=== PATIENT | female | born 1955 | race Caucasian/White ===

== ENCOUNTER → 2016-12-16 | Outpatient (CLI) | payer OTHER ==
[~2016-12-16] MED LIST: DRV100 PO; SUMA50TA15 PO; TAMO20TA47 PO
--- NOTE | 2016-12-16 16:37 | MAMMOGRAPHY REPORT ---
UNILATERAL LEFT DIGITAL SCREENING MAMMOGRAM TOMOSYNTHESIS WITH CAD: 12/16/2016 CLINICAL HISTORY: Routine screening examination. Personal history of right breast cancer status pos t mastectomy. TECHNIQUE: Left breast tomosynthesis in addition to standard 2D mammography was performed. Current tavo melton was also evaluated with a Computer Aided Detection (CAD) system. COMPARISON: Comparison is made to exams dated: 12/06/2015 mammogram, 11/14/2014 mammogram, 11/09/2013 m ammogram, 09/16/2012 mammogram, 06/05/2011 mammogram, and 09/19/2010 ultrasound - [facility]. BREAST COMPOSITION: There are scattered areas of fibroglandular density in the left breast. FINDINGS: The parenchymal pattern is similar to prior mammograms. There are scattered stable benig n rim calcifications throughout the left breast. No developing mass, architectural distortion or cl uster of suspicious microcalcifications is seen. IMPRESSION: ACR BI-RADS CATEGORY 2: BENIGN There is no mammographic evidence of malignancy. A 1 year screening mammogram is recommended. The p atient will receive written notification of the results. Approximately 10% of breast cancers are not detected with mammography. A negative mammographic repor t should not delay biopsy if a clinically suggestive mass is present. Eleni Tenorio M.D. ay/:12/16/2016 14:02:51 Chief Administrative Officer: Kellen PETERSON(R)(M), [facility] letter sent: Normal 1/2 BI-RADS Code: ACR BI-RADS Category 2: Benign
== END | disposition home or self-care (01) ==
LOC: C.MAMM 11:59
PROVIDERS: ATTEND Internal Medicine
DX: Z12.31 Encounter for screening mammogram for malignant neoplasm of breast (principal); Z85.3 Personal history of malignant neoplasm of breast

== ENCOUNTER → 2017-01-10 | Outpatient (CLI) | payer OTHER ==
[~2017-01-10] MED LIST changes: -TAMO20TA47 PO; +TAMO20TA9 PO
== END | disposition home or self-care (01) ==
LOC: C.LABSPEC 16:21
PROVIDERS: ATTEND Internal Medicine
DX: R39.9 Unspecified symptoms and signs involving the genitourinary system (principal)

== ENCOUNTER → 2017-10-31 | Outpatient (CLI) | payer OTHER ==
--- NOTE | 2017-10-31 09:31 | DIAGNOSTIC IMAGING REPORT ---
ABDOMINAL ULTRASOUND, RIGHT UPPER QUADRANT HISTORY: Right upper quadrant abdominal pain.. COMPARISON: None. FINDINGS: Pancreas: The pancreatic tail is obscured by overlying bowel gas. The remaining portions of the pancreas are within normal limits. Liver: The liver is echogenic consistent with fatty change. Gallbladder: No gallbladder wall thickening. There is a 1.8 cm stone. CBD: 5 mm. Right kidney: No hydronephrosis. IMPRESSION: 1. Cholelithiasis. No gallbladder wall thickening. 2. Hepatic steatosis. Electronically signed by: Miguel Ángel Leger M.D. 10/31/2017 9:30 AM Dictated Date/Time: 10/31/2017 9:29 AM
[2017-10-31 11:17] LABS: BASO % 0.2 %; BASO ABS # 0.02 K/uL (0-0.2); EOS ABS # 0.09 K/uL (0-0.5); HEMATOCRIT 41.4 % (37-47); HEMOGLOBIN 14.8 g/dL (12.0-16.0); IG# 0.02 K/uL (0.00-0.02); LYMPH % 17.6 %; LYMPH ABS # 1.66 K/uL (1.2-3.4); MEAN CELL VOLUME 89.6 fL (80-100); MEAN CORPUSCULAR HGB CONC 35.7 g/dl (32-36); MEAN PLATELET VOLUME 10.1 fL (7.4-10.4); MONO ABS # 0.47 K/uL (0.11-0.59); NEUT ABS # 7.17 K/uL (1.4-6.5); PLATELET COUNT 241 K/uL (130-400); RED CELL DISTRIBUTION WIDTH SD 42.4 fL (36.4-46.3); WHITE BLOOD COUNT 9.43 K/uL (4.8-10.8)
[2017-10-31 11:34] LABS: ALBUMIN 3.7 gm/dl (3.4-5.0); ALT/SGPT 29 U/L (12-78); AST/SGOT 19 U/L (15-37); BLOOD UREA NITROGEN 11 mg/dl (7-18); CALCIUM 8.3 mg/dl (8.5-10.1); CARBON DIOXIDE 27 mmol/L (21-32); CREATININE 0.69 mg/dl (0.60-1.20); GLUCOSE 120 mg/dl (70-99); POTASSIUM 3.9 mmol/L (3.5-5.1); SODIUM 137 mmol/L (136-145)
[2017-10-31 11:45] LABS: ALKALINE PHOSPHATASE 74 U/L (45-117); CHOLESTEROL 216 mg/dl (0-200); LDL CHOLESTEROL CALCULATED 138 mg/dl; TOTAL PROTEIN 7.5 gm/dl (6.4-8.2)
== END | disposition home or self-care (01) ==
LOC: C.ULTRBC 08:21
PROVIDERS: ATTEND Internal Medicine
DX: R10.11 Right upper quadrant pain (principal); K80.20 Calculus of gallbladder without cholecystitis without obstruction; K76.0 Fatty (change of) liver, not elsewhere classified

== ENCOUNTER → 2018-01-19 | Outpatient (CLI) | payer OTHER ==
--- NOTE | 2018-01-20 07:39 | MAMMOGRAPHY REPORT ---
UNILATERAL LEFT DIGITAL SCREENING MAMMOGRAM TOMOSYNTHESIS WITH CAD: 01/19/2018 CLINICAL HISTORY: Asymptomatic. Personal history of breast cancer. TECHNIQUE: Left breast tomosynthesis in addition to standard 2D mammography was performed. Current st udy was also evaluated with a Computer Aided Detection (CAD) system. COMPARISON: Comparison is made to exams dated: 12/16/2016 mammogram, 12/06/2015 mammogram, 11/14/2014 ma mmogram, 11/09/2013 mammogram, 09/16/2012 mammogram, and 06/05/2011 mammogram - [facility]ter. BREAST COMPOSITION: There are scattered areas of fibroglandular density in the left breast. FINDINGS: There are scattered stable benign rim calcifications in the left breast. The glandular pat tern is similar to prior mammograms. No new suspicious mass, architectural distortion or cluster of microcalcifications is seen. IMPRESSION: ACR BI-RADS CATEGORY 1: NEGATIVE There is no mammographic evidence of malignancy. A 1 year screening mammogram is recommended. The pa tient will receive written notification of the results. Approximately 10% of breast cancers are not detected with mammography. A negative mammographic report should not delay biopsy if a clinically suggestive mass is present. Eleni Tenorio M.D. ay/:01/19/2018 15:11:53 Gut Carrier: Cris ALICIA)(Madelyn), [facility] letter sent: Normal 1/2 BI-RADS Code: ACR BI-RADS Category 1: Negative
== END | disposition home or self-care (01) ==
LOC: C.MAMM 13:26
PROVIDERS: ATTEND Internal Medicine
DX: Z12.31 Encounter for screening mammogram for malignant neoplasm of breast (principal); Z90.11 Acquired absence of right breast and nipple